=== PATIENT | female | born 1975 | race Caucasian/White ===

== ENCOUNTER 2024-08-02 05:55 | Day surgery (SDC) | payer OTHER ==
[2024-07-26 07:57] LABS: HEMATOCRIT 34.2 % (36.0-45.00); HEMOGLOBIN 10.8 g/dL (12.0-15.00); MEAN CELL VOLUME 77.4 fL (80.00-100.00); MEAN CORPUSCULAR HEMOGLOBIN 24.5 pg (27.00-32.0); MEAN CORPUSCULAR HGB CONC 31.7 g/dl (32.0-36.0); PLATELET COUNT 230 K/uL (150-450); RED BLOOD COUNT 4.42 M/uL (4.00-6.00); RED CELL DISTRIBUTION WIDTH 14.5 % (11.5-14.5)
[2024-07-26 07:59] LABS: URINE APPEARANCE Clear; URINE BILIRRUBIN Negative (NEGATIVE); URINE BLOOD Negative; URINE COLOR Yellow; URINE GLUCOSE Negative (NEGATIVE); URINE KETONE Negative (NEGATIVE); URINE LEUKOCYTE Trace; URINE NITRATE Negative; URINE PROTEIN Negative (NEGATIVE)
[2024-07-26 08:03] LABS: URINE BACTERIA 2565.2 uL (0.0-1933); URINE EPITHELIAL CELLS 21.3 uL (0.0-38.8); URINE RBC 10.9 uL (0.0-20.8); URINE WBC 28.9 uL (0.0-23.2)
[2024-07-26 08:09] LABS: URINE CAST 0.14 uL (0.0-1.40)
[2024-07-26 08:21] VITALS: BP 135/76
[2024-07-26 08:21] LABS: INR 0.97; PROTHROMBIN TIME 10.6 SECONDS (9.0-11.5)
[2024-07-26 08:37] LABS: ALBUMIN 3.7 gm/dL (3.4-5.0); BILIRUBIN TOTAL 0.46 mg/dL (0.3-1.2); CALCIUM 9.2 mg/dL (8.5-10.1); CREATININE SERUM 0.53 mg/dL (0.55-1.02); GFR 122.61; GLOBULINA 3.4 G/DL (2.4-3.5); POTASSIUM 4.36 mEq/L (3.5-5.1); TOTAL PROTEIN 7.1 gm/dL (6.4-8.2)
[~2024-08-02] VITALS: Ht 160 cm; Wt 88.9 kg
[~2024-08-02 05:55] MED LIST: HEMATRON P.O.1 UDTAB
[2024-08-02] MEDS ORDERED: POVIDONE-IODINE 118 ML BOTT TOP ONE (07:28)
[2024-08-03] MEDS ORDERED: POVIDONE-IODINE 118 ML BOTT TOP ONE (20:45)
== END 2024-08-02 14:35 | disposition home or self-care (01) ==
LOC: CIR.AMB 05:55
PROVIDERS: ATTEND Obstetrics & Gynecology
DX: N93.9 Abnormal uterine and vaginal bleeding, unspecified (principal); N84.0 Polyp of corpus uteri; E03.8 Other specified hypothyroidism; E16.2 Hypoglycemia, unspecified

== ENCOUNTER 2024-09-26 08:28 | Inpatient (IN) | payer OTHER ==
[~2024-09-26] VITALS: Ht 160 cm; Wt 89.8 kg
[2024-09-26] MEDS ORDERED: IRON325 MG PO (09:07)
[2024-09-26] MEDS ORDERED: FOLIC ACID0.8 M1 PO (09:08)
[2024-09-26 09:09] VITALS: BP 144/68
[2024-09-26 09:11] VITALS: BP 109/54
[2024-09-26 09:35] LABS: PH,URINE 6.5 (5.0-8.0); URINE APPEARANCE Clear; URINE BILIRRUBIN Negative (NEGATIVE); URINE BLOOD Negative; URINE COLOR Yellow; URINE GLUCOSE Negative (NEGATIVE); URINE KETONE Negative (NEGATIVE); URINE LEUKOCYTE Small; URINE NITRATE Positive; URINE PROTEIN Negative (NEGATIVE); URINE UROBILINOGEN 0.2 E.U./dl
[2024-09-26 09:37] LABS: URINE EPITHELIAL CELLS 15.6 uL (0.0-38.8); URINE RBC 13.5 uL (0.0-20.8); URINE WBC 46.3 uL (0.0-23.2)
[2024-09-26 09:44] LABS: URINE BACTERIA > 9821.5 uL (0.0-1933)
[2024-09-26 10:03] LABS: HEMATOCRIT 40.2 % (36.0-45.00); HEMOGLOBIN 12.6 g/dL (12.0-15.00); MEAN CELL VOLUME 74.7 fL (80.00-100.00); MEAN CORPUSCULAR HEMOGLOBIN 23.4 pg (27.00-32.0); MEAN CORPUSCULAR HGB CONC 31.3 g/dl (32.0-36.0); PLATELET COUNT 236 K/uL (150-450); RED BLOOD COUNT 5.39 M/uL (4.00-6.00)
[2024-09-26 10:19] LABS: INR 0.97; PARTIAL THROMBOPLASTIN TIME 26.4 SECONDS (22.0-34.0); PROTHROMBIN TIME 10.6 SECONDS (9.0-11.5)
[2024-09-26 10:31] LABS: ALBUMIN 3.8 gm/dL (3.4-5.0); BILIRUBIN TOTAL 0.51 mg/dL (0.3-1.2); CALCIUM 9.5 mg/dL (8.5-10.1); CREATININE SERUM 0.58 mg/dL (0.55-1.02); GFR 110.49; GLOBULINA 3.7 G/DL (2.4-3.5); POTASSIUM 4.66 mEq/L (3.5-5.1); TOTAL PROTEIN 7.5 gm/dL (6.4-8.2)
[2024-09-26 12:04] LABS: RED CELL DISTRIBUTION WIDTH 19.7 % (11.5-14.5)
[2024-09-30] MEDS ORDERED: POVIDONE-IODINE 118 ML BOTT TOP ONE (10:45)
[2024-09-30] MEDS ORDERED: CEFAZOLIN SODIUM 1,000 MG VIAL ONE ×2 (12:16→15:56)
[2024-09-30] MEDS ORDERED: CEFAZOLIN SODIUM 1,000 MG VIAL IV SCH (14:42)
[2024-09-30] MEDS ORDERED: MORPHINE SULFATE 4 MG/ML CARTRIDGE IV PRN (14:45)
[2024-09-30] MEDS ORDERED: ONDANSETRON HCL 2 MG/ML VIAL ONE (16:25)
[2024-09-30 18:10] VITALS: BP 144/68
[2024-09-30 18:27] LABS: HEMATOCRIT 36.2 % (36.0-45.00); HEMOGLOBIN 11.2 g/dL (12.0-15.00); MEAN CORPUSCULAR HEMOGLOBIN 23.3 pg (27.00-32.0); MEAN CORPUSCULAR HGB CONC 31.1 g/dl (32.0-36.0); PLATELET COUNT 211 K/uL (150-450); RED BLOOD COUNT 4.82 M/uL (4.00-6.00)
[2024-10-01 01:00] VITALS: BP 112/67
[2024-10-01 07:39] VITALS: BP 104/60
[2024-10-01] MEDS ORDERED: IBUprofen 800 MG TABLET PO SCH (09:00)
[2024-10-01 13:24] VITALS: BP 116/79
[2024-10-01 16:00] VITALS: BP 103/63
[2024-10-02 00:10] VITALS: BP 115/80
[2024-10-02 07:58] VITALS: BP 109/75
[2024-10-02 16:00] VITALS: BP 120/78
[2024-10-03] VITALS: BP 122/74
[2024-10-03 08:24] VITALS: BP 130/79
== END 2024-10-03 09:17 | disposition home or self-care (01) | DRG 743 ==
LOC: OB/GYN 09-30 06:00 → O/R 09-30 06:00 → OB/GYN 09-30 08:26
PROVIDERS: ADMIT Obstetrics & Gynecology; ATTEND Obstetrics & Gynecology
PROC: 0UT70ZZ Resection of Bilateral Fallopian Tubes, Open Approach (ICD-10-PCS; 2024-09-30)
PROC: 0UT20ZZ Resection of Bilateral Ovaries, Open Approach (ICD-10-PCS; 2024-09-30)
PROC: 0UT90ZZ Resection of Uterus, Open Approach (ICD-10-PCS; principal; 2024-09-30 11:30)
DX: D25.2 Subserosal leiomyoma of uterus (principal); N72 Inflammatory disease of cervix uteri; Z90.710 Acquired absence of both cervix and uterus